=== PATIENT | male | born 1940 | race Caucasian/White ===

== ENCOUNTER 2016-07-14 09:29 | Outpatient (RCR) | payer MEDICARE | END 2016-07-25 | LOC: M CR 09:29 | PROVIDERS: ATTEND Internal Medicine Cardiovascular Disease | DX: Z98.61 Coronary angioplasty status (principal); Z95.1 Presence of aortocoronary bypass graft; I25.10 Atherosclerotic heart disease of native coronary artery without angina pectoris ==

== ENCOUNTER → 2020-10-12 | Outpatient (CLI) | payer MEDICARE ==
--- NOTE | 2020-10-12 12:54 | REPPI ---
INDICATION: ELEVATED PSA. COMPARISON: None. TECHNIQUE: Transrectal prostate sonography. FINDINGS: Trans rectal prostate sonography demonstrates unremarkable seminal vesicles. Prostate gland is heterogeneous, with calcifications and cystic changes noted. Glandular dimensions are measured at 3.6 by 3.5 x 4.4 cm with a calculated glandular volume of 29.2 ml. Transrectal sonographic guidance is provided to Dr. Lazo who performed trans rectal ultrasound guided needle biopsy procedure. IMPRESSION: Transrectal prostate sonographic findings as above. <Electronically signed by Silas Drake > 10/12/20 [id number]
== END ==
LOC: M SMT PRO 10:41
PROVIDERS: ATTEND Urology
DX: N40.2 Nodular prostate without lower urinary tract symptoms (principal)
CPT/HCPCS: 55700; 76872; 76942; G0416

== ENCOUNTER 2025-03-07 09:05 | Emergency (ER) | payer MEDICARE ==
[~2025-03-07] VITALS: Ht 167.6 cm; Wt 87.0 kg
[2025-03-07] MEDS ORDERED: PRAV20TA78 PO (09:35)
[2025-03-07] MEDS ORDERED: TAMS1CAP17 PO (09:35)
[2025-03-07] MEDS ORDERED: ASPI81CH33 PO (09:35)
[2025-03-07] MEDS ORDERED: LEVO175T2 PO (09:35)
[2025-03-07 09:49] LABS: BASO # 0.0 10^3/uL (0.0-0.2); BASO % 0.7 % (0.0-1.0); EOS # 0.3 10^3/uL (0.0-0.5); EOS % 4.6 % (0.0-3.0); LYMPH # 1.0 10^3/uL (1.5-5.0); LYMPH % 16.1 % (24.0-44.0); MONO # 0.8 10^3/uL (0.0-0.8); MONO % 12.7 % (2.0-8.0); NEUTROPHILS # 3.9 10^3/uL (1.5-8.5); NEUTROPHILS % 65.6 % (36.0-66.0); PLATELET COUNT, AUTOMATED 169 10^3/uL (150-450)
[2025-03-07 10:01] LABS: INR 0.96
[2025-03-07 10:17] LABS: CPK CREATINE PHOSPHOKINASE 38 U/L (46-171)
[2025-03-07 10:25] LABS: ALT/SGPT 16 U/L (7.0-40); AST/SGOT 20 U/L (<34); CALCIUM LEVEL 8.8 MG/DL (8.3-10.6); CARBON DIOXIDE LEVEL 30 MMOL/L (20-31); CHLORIDE LEVEL 105 MMOL/L (98-107); CK-MB VALUE MASS 1.7 NG/ML (<3.6); CREATININE FOR GFR 0.67 MG/DL (0.70-1.30); GLOMERULAR FILTRATION RATE > 90.0 (>35); MB/CK RELATIVE INDEX 4.47 (< OR =4); POTASSIUM SERUM 4.3 MMOL/L (3.5-5.1); SODIUM LEVEL 140 MMOL/L (136-145)
[2025-03-07] MEDS ORDERED: THERTAB52 PO (10:48)
[2025-03-07] MEDS ORDERED: ASPI81TA26 PO (10:48)
[2025-03-07] MEDS ORDERED: HOME MED LIST COMPLETE! XX SCH (10:50)
[2025-03-07] MEDS: CARBAMIDE PEROXIDE 6.5% OTIC SOLN 15 ML AU ONE (11:12)
[2025-03-07] MEDS ORDERED: DEBR6.5S4 AU (13:40)
[2025-03-07] MEDS ORDERED: MECL-209 PO (13:40)
[2025-03-07 13:46] VITALS: BP 162/78; TEMP 97.4; O2SAT 95
== END 2025-03-07 13:58 | disposition home or self-care (01) ==
LOC: M ED 09:05
DX: H81.4 Vertigo of central origin (principal); H61.23 Impacted cerumen, bilateral; R00.1 Bradycardia, unspecified; I25.119 Atherosclerotic heart disease of native coronary artery with unspecified angina pectoris; N40.0 Benign prostatic hyperplasia without lower urinary tract symptoms; I10 Essential (primary) hypertension; E78.5 Hyperlipidemia, unspecified; Z79.1 Long term (current) use of non-steroidal anti-inflammatories (NSAID); Z79.899 Other long term (current) drug therapy; Z79.810 Long term (current) use of selective estrogen receptor modulators (SERMs)